=== PATIENT | male | born 1995 | race Caucasian/White ===

== ENCOUNTER 2018-06-12 17:44 | Emergency (ER) | payer MEDICAID ==
[~2018-06-12 17:44] MED LIST: PRED20TA6 PO
[2018-06-12] MEDS ORDERED: ANAPHYLAXIS KIT 1 EA ONE (17:47)
--- NOTE | 2018-06-12 17:48 | ER Report ---
History and Physical Time Seen By MD: 17:48 HPI/ROS CHIEF COMPLAINT: Allergic reaction HISTORY OF PRESENT ILLNESS: This is a 22-year-old male presents to emergency room for an allergic reaction. 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 Patient states he's done very well at avoiding these foods. Today he states he did not eat anything around the time he began to exercise. States about 20 minutes prior to arrival he suddenly began to have some shortness of breath, developed hives and usual pattern for his anaphylaxis. He took 50 mg by mouth Benadryl, and certirazine, drove himself to the emergency department. He did not use his EpiPen. Upon arrival she was hyperventilating, anxious however no wheezing, he was given an EpiPen upon arrival, also had hives systemically. Denies nausea or vomiting. No recent fevers or chills. No other concerning findings. No chest pain. REVIEW OF SYSTEMS: Constitutional: No fever, no chills. Eyes: No discharge. ENT: No sore throat. Cardiovascular: No chest pain, no palpitations. Respiratory: As above. Gastrointestinal: No abdominal pain, no vomiting. Genitourinary: No hematuria. Musculoskeletal: No back pain. Skin: As above. Neurological: No headache. Allergies: Coded Allergies: ketorolac (Verified Allergy, Intermediate, 11/20/15) elevated BP Home Meds Active Scripts Prednisone (PREDNISONE) 20 Mg Tablet, 20 MG PO BID, #10 TAB Prov:BERNICE LEE [employer] 06/12/18 Epinephrine (EPIPEN 2-ISMAEL) 0.3 Mg/0.3 Ml Pen.injctr, 0.3 MG IM PRN, #1 PACK Prov:BERNICE LEE [employer] 06/12/18 Prednisone (PREDNISONE) 20 Mg Tablet, 60 MG PO QDAY, #9 TAB 0 Refills Prov:ELSY LEE MD 11/20/15 Past Medical/Surgical History Patient has a past medical and surgical history of exercise-induced and food induced anaphylaxis otherwise no significant past medical or surgical history. Reviewed Nurses Notes: Yes Hx Smoking: No Exposure to Second Hand Smoke?: No Hx Substance Use Disorder: No Hx Alcohol Use: No Constitutional Vital Sign - Last 24 Hours 06/12/18 06/12/18 06/12/18 06/12/18 17:50 17:52 17:59 18:00 Temp 98.5 Pulse 123 119 Resp 18 9 B/P (MAP) 129/83 129/83 (98) 118/64 (82) Pulse Ox 92 94 O2 Delivery Room Air 06/12/18 06/12/18 06/12/18 06/12/18 18:14 18:29 18:30 18:44 Pulse 100 108 109 Resp 10 11 27 B/P (MAP) 108/68 (81) Pulse Ox 93 95 95 06/12/18 06/12/18 18:59 19:00 Pulse 111 Resp 15 B/P (MAP) 116/62 (80) Pulse Ox 94 Physical Exam General Appearance: The patient is alert, has no immediate need for airway protection and no signs of toxicity. Eyes: Pupils equal and round no pallor or injection. ENT, Mouth: Mucous membranes are moist. Mild erythematous posterior oropharynx, no edema or swelling identified. Respiratory: There are no retractions, lungs are clear to auscultation. Cardiovascular: Regular rate and rhythm. No murmurs, clicks or rubs. Gastrointestinal: Abdomen is soft and non tender, no masses, bowel sounds normal. Neurological: Alert and oriented 4. Moving all extremities. Following all commands. No focal neurodeficits. Skin: Systemic hives, with majority on the arms trunk and face. Musculoskeletal: Neck is supple non tender. Extremities are nontender, nonswollen and have full range of motion. DIFFERENTIAL DIAGNOSIS: After history and physical exam differential diagnosis was considered for anaphylaxis, allergic reaction. Medical Decision Making ED Course/Re-evaluation Clinical Indication for ER IV: Hydration, IV Access ED Course The patient was admitted to room. A history of physical were obtained. Differential diagnoses were considered. IV was started. A liter normal saline bolus was given. Patient was given a 0.3 mg EpiPen in the right vastus lateralis. Patient was given 25 mg IV Benadryl, 20 mg IV famotidine, 125 mg Solu-Medrol. Patient states feeling much better, symptoms have resolved. Patient states he was able to figure out what induced the reaction, he states he did eat and no milk okay about 20 minutes prior to working out, feels that this was what induced the allergic reaction. Patient was also given 20 mg by mouth prednisone, start a 5 day burst tomorrow. Patient was agreeable with this plan of care and discharged home. No indication of rebound symptoms. Decision to Disposition Date: June 12, 2018 Decision to Disposition Time: 19:00 Depart Departure Latest Vital Signs Vital Signs Date Time Temp Pulse Resp B/P (MAP) Pulse Ox O2 Delivery O2 Flow Rate FiO2 06/12/18 19:00 116/62 (80) 06/12/18 18:59 111 15 94 06/12/18 17:50 98.5 Room Air Impression: Primary Impression: Allergic reaction Condition: Improved Disposition: HOME OR SELF-CARE New Scripts Prednisone (PREDNISONE) 20 Mg Tablet 20 MG PO BID, #10 TAB Prov: BERNICE LEE 06/12/18 Epinephrine (EPIPEN 2-ISMAEL) 0.3 Mg/0.3 Ml Pen.injctr 0.3 MG IM PRN, #1 PACK Prov: BERNICE LEE 06/12/18 Patient Instructions: Anaphylaxis (ED), General Allergic Reaction (ED) Additional Instructions: If you have on allergic reactions similar to the one had today please usual EpiPen. KEEP your EpiPen with you. Take 25-50 mg Benadryl as needed for hives. Take the prednisone for the next 5 days as prescribed. Drink plenty of water. Get plenty of rest. Return to the ER for any other concerns or worsening symptoms. Problem Qualifiers Primary Impression: Allergic reaction Encounter type: initial encounter Qualified Codes: T78.40XA - Allergy, unspecified, initial encounter BERNICE LEE June 12, 2018 17:48
[2018-06-12] MEDS ORDERED: EPINEPHrine 0.3 MG SYR IM ONLY ONE (17:55)
[2018-06-12] MEDS ORDERED: NS(*) 0.9% 1000 ML BAG 1,000 ML IV ONE (17:55)
[2018-06-12] MEDS ORDERED: methylPREDNIS SUCC 125 MG/2ML IVP ONE (17:55)
[2018-06-12] MEDS ORDERED: diphenhydrAMINE 50 MG/ML VIAL IVP ONE (17:55)
[2018-06-12] MEDS ORDERED: FAMOTIDINE(*) 20MG/50ML PREMIX 50 ML IVPB ONE (17:55)
[2018-06-12] MEDS ORDERED: EPIN0.3P15 IM (18:39)
[2018-06-12 19:00] VITALS: BP 116/62
[2018-06-12] MEDS ORDERED: predniSONE 20 MG TAB PO ONE (19:00)
[2018-06-12] MEDS ORDERED: PRED20TA6 PO (19:00)
== END 2018-06-12 19:14 | disposition home or self-care (01) ==
LOC: ER 17:55
DX: T78.40XA Allergy, unspecified, initial encounter (principal)
CPT/HCPCS: 96365; 96372; 96375; 99284; J1200; J2930; J7030; J7512; J0171